=== PATIENT | male | born 1930 | race Caucasian/White ===

== ENCOUNTER 2016-10-10 16:43 | Inpatient (IN) | payer MEDICARE, OTHER ==
[~2016-10-10] VITALS: Ht 175.2 cm; Wt 89.8 kg
--- NOTE | ~2016-10-10 | CON ---
[place], [place] REPORT OF CONSULTATION NAME: MACIEJ BLANK UNIT #: [id number] ROOM: 427 DOCTOR: KAIT HERNANDEZ,EZEKIEL BIRTHDATE: [birth year] DOS: 10/11/2016 ADDENDUM CARDIOLOGY CONSULTATION REASON FOR CONSULTATION: The patient ectopy. This note is an addendum to the notes dictated by Dr. Floyd Fontenot. His exam and assessment reflects my work. PHYSICAL EXAMINATION: HEART: Focused cardiac exam of the heart was irregular, grade 1/6 systolic murmur. LUNGS: Clear to auscultation. EXTREMITIES: Showed 1+ edema. DIAGNOSTIC TESTS: Labs reviewed. IMPRESSION: 1. Frequent supraventricular ectopy, asymptomatic. 2. Altered mental status from hypoglycemia, resolved. 3. Mild lower extremity edema, possibly due to medication related. 4. Diabetes type 2. 5. Chronic kidney disease stage 4. 6. Elevated CK-MB due to mild rhabdo. RECOMMENDATIONS: 1. The patient denies any chest pain. 2. Start low dose beta lori for hypertension and also for supraventricular ectopy. 3. Discontinue Cardizem as well as p.r.n. labetalol. 4. For blood pressure, the patient intake additionally metoprolol as needed. 5. Adjust metoprolol dose based on his blood pressures and heart rates. EZEKIEL CARBALLO MD CM:CONSTR:REPORT OF CONSULTATION 0224 10/14/16 1405 interface
[~2016-10-10 16:43] MED LIST: DILTIAZEM HCL240 M1 PO; LABETALOL HCL100 MG PO; NATURE'S BLEND F1 MG PO; NOVOLOG 70/30 M10 ML SC; ROSUVASTATIN CA40 MG PO; SYNTHROID,LEV112 MCG PO
[2016-10-10 16:53] VITALS: BP 112/69
[2016-10-10 17:05] LABS: BASO # 0.1 10*3/uL (0.0-0.1); BASO % 0.7 % (0.0-1.0); HEMATOCRIT 37.6 % (42.0-52.0); HEMOGLOBIN 11.8 g/dl (14.0-18.0); LYMPH # 1.8 10*3/uL (1.3-4.4); LYMPH % 15.9 % (27.0-41.0); MEAN CELL VOLUME 99.2 fl (80.0-94.0); MEAN CORPUSCULAR HGB 31.1 pg (27.0-31.0); MEAN CORPUSCULAR HGB CONC 31.4 g/dl (33.0-37.0); MEAN PLATELET VOLUME 9.7 fl (9.6-12.3); MONO # 0.7 10*3/uL (0.1-1.0); MONO % 5.6 % (3.0-9.0); NEUT % 77.5 % (47.0-73.0); PLATELET COUNT AUTOMATED 203 10*3/uL (130-400); RED BLOOD COUNT 3.79 10*6/uL (4.50-5.90); RED CELL DISTRI WIDTH 14.6 % (0-14.5); WHITE BLOOD COUNT 11.6 10*3/uL (4.8-10.8)
[2016-10-10 17:13] LABS: PROTHROMBIN TIME 10.9 SECONDS (9.0-12.4)
[2016-10-10 17:25] LABS: ALBUMIN 3.8 gm/dl (3.1-4.5); ALKALINE PHOSPHATASE 92 U/L (45-117); BILIRUBIN, TOTAL 0.4 mg/dl (0.2-1.0); BUN 33 mg/dl (7-24); CARBON DIOXIDE 25 mmol/L (21-32); CHLORIDE 111 mmol/L (98-107); CPK 444 U/L (39-308); EST GLOM FILT AFRICAN AMERICAN 23 ml/min; GLUCOSE 120 mg/dL (65-99); LDH 226 U/L (87-241); MAGNESIUM 2.1 mg/dL (1.5-2.1); POTASSIUM 4.4 mmol/L (3.5-5.1); SGOT/AST 35 IU/L (3-35); SGPT/ALT 55 U/L (12-78); SODIUM 145 mmol/L (136-145); TOTAL PROTEIN 7.8 gm/dL (6.4-8.2)
[2016-10-10 17:28] LABS: CKMB 9.6 ng/ml (0.5-3.6); TROPONIN I < 0.015 ng/ml (<0.5)
[2016-10-10 18:00] VITALS: BP 144/90
[2016-10-10 20:37] VITALS: BP 151/87
[2016-10-10 21:20] VITALS: BP 180/60
[2016-10-11] VITALS: BP 165/56
[2016-10-11 00:52] LABS: TROPONIN I 0.026 ng/ml (<0.5)
[2016-10-11 00:54] LABS: CKMB 10.5 ng/ml (0.5-3.6)
[2016-10-11 05:55] LABS: BASO # 0.1 10*3/uL (0.0-0.1); BASO % 0.6 % (0.0-1.0); HEMATOCRIT 33.5 % (42.0-52.0); HEMOGLOBIN 10.7 g/dl (14.0-18.0); LYMPH # 1.7 10*3/uL (1.3-4.4); LYMPH % 16.6 % (27.0-41.0); MEAN CELL VOLUME 98.2 fl (80.0-94.0); MEAN CORPUSCULAR HGB 31.4 pg (27.0-31.0); MEAN CORPUSCULAR HGB CONC 31.9 g/dl (33.0-37.0); MEAN PLATELET VOLUME 10.4 fl (9.6-12.3); MONO % 9.5 % (3.0-9.0); NEUT # 7.5 10*3/uL (2.3-7.9); PLATELET COUNT AUTOMATED 186 10*3/uL (130-400); RED BLOOD COUNT 3.41 10*6/uL (4.50-5.90); RED CELL DISTRI WIDTH 14.6 % (0-14.5); WHITE BLOOD COUNT 10.2 10*3/uL (4.8-10.8)
[2016-10-11 06:07] LABS: TROPONIN I 0.027 ng/ml (<0.5)
[2016-10-11 06:09] LABS: CKMB 8.2 ng/ml (0.5-3.6)
[2016-10-11 06:28] LABS: HEMOGLOBIN A1c 7.2 % (4.8-5.6)
[2016-10-11 06:32] LABS: ALBUMIN 3.3 gm/dl (3.1-4.5); BILIRUBIN, TOTAL 0.6 mg/dl (0.2-1.0); FREE T4 0.99 ng/dl (0.76-1.46); POTASSIUM 4.7 mmol/L (3.5-5.1); THYROID STIM HORMONE (HS) 0.529 uIU/ml (0.358-4.75); TOTAL PROTEIN 6.4 gm/dL (6.4-8.2)
[2016-10-11 06:33] LABS: INTERNATIONAL NORM RATIO 1.1 (2.0-3.5); PROTHROMBIN TIME 11.2 SECONDS (9.0-12.4)
[2016-10-11 07:03] LABS: FOLIC ACID > 24.00 ng/mL (>5.38)
[2016-10-11 08:00] VITALS: BP 140/78
[2016-10-11 12:00] VITALS: BP 143/52
[2016-10-11 12:06] LABS: TROPONIN I 0.029 ng/ml (<0.5)
[2016-10-11 12:10] LABS: CKMB 8.8 ng/ml (0.5-3.6)
[2016-10-11 16:00] VITALS: BP 139/58
[2016-10-11] MEDS ORDERED: NOVOLOG 70/30 M10 ML SC (19:21)
[2016-10-11 20:00] VITALS: BP 141/58
[2016-10-11 23:45] LABS: BILIRUBIN NEGATIVE (NEGATIVE); BLOOD 2+ (NEGATIVE); CLARITY CLEAR (CLEAR); COLOR YELLOW (YELLOW); GLUCOSE 2+ (NEGATIVE); KETONE NEGATIVE (NEGATIVE); LEUKO ESTERASE 1+ (NEGATIVE); NITRITE NEGATIVE (NEGATIVE); PH 6.5 (5.0-9.0); PROTEIN 2+ (NEGATIVE); SPECIFIC GRAVITY 1.015 (1.005-1.030); UROBILINOGEN 0.2 E.U./dl (0.2-1.0)
[2016-10-12] VITALS: BP 152/55
[2016-10-12 00:35] LABS: BACTERIA TRACE
[2016-10-12 06:01] LABS: BASO # 0.1 10*3/uL (0.0-0.1); BASO % 1.1 % (0.0-1.0); HEMATOCRIT 33.3 % (42.0-52.0); HEMOGLOBIN 10.6 g/dl (14.0-18.0); LYMPH # 2.3 10*3/uL (1.3-4.4); LYMPH % 27.4 % (27.0-41.0); MEAN CELL VOLUME 98.8 fl (80.0-94.0); MEAN CORPUSCULAR HGB 31.5 pg (27.0-31.0); MEAN CORPUSCULAR HGB CONC 31.8 g/dl (33.0-37.0); MEAN PLATELET VOLUME 10.2 fl (9.6-12.3); MONO # 0.9 10*3/uL (0.1-1.0); MONO % 10.3 % (3.0-9.0); PLATELET COUNT AUTOMATED 185 10*3/uL (130-400); RED BLOOD COUNT 3.37 10*6/uL (4.50-5.90); RED CELL DISTRI WIDTH 14.5 % (0-14.5); WHITE BLOOD COUNT 8.3 10*3/uL (4.8-10.8)
[2016-10-12 06:36] LABS: ALBUMIN 3.1 gm/dl (3.1-4.5); PHOSPHOROUS 3.1 mg/dL (2.5-4.9)
[2016-10-12 08:00] VITALS: BP 160/52
[2016-10-12] MEDS ORDERED: NOVOLOG 70/30 M10 ML SC ×2 (10:57)
[2016-10-12 11:57] VITALS: BP 160/60
[2016-10-27] MEDS ORDERED: DOXYCYCLINE100 M3 PO (18:05)
[2016-10-27] MEDS ORDERED: Oscal,Oyster S500 MG PO (18:05)
[2016-10-28] MEDS ORDERED: CARDIZEM CD120 M2 PO (16:32)
[2016-10-28] MEDS ORDERED: CARDIZEM CD240 M1 PO (16:38)
[2016-11-02] MEDS ORDERED: NOVOLOG 70/30 M10 ML SC (13:03)
== END 2016-10-12 14:45 | disposition home or self-care (01) | DRG 637 ==
LOC: ED 16:43 → EDHOLD 19:20 → 4E 19:20
PROVIDERS: Hospitalist; Internal Medicine Nephrology; Nurse Practitioner Family
DX: E11.649 Type 2 diabetes mellitus with hypoglycemia without coma (principal); G93.41 Metabolic encephalopathy; N18.4 Chronic kidney disease, stage 4 (severe); M62.82 Rhabdomyolysis; D72.829 Elevated white blood cell count, unspecified; E03.9 Hypothyroidism, unspecified; I12.9 Hypertensive chronic kidney disease with stage 1 through stage 4 chronic kidney disease, or unspecified chronic kidney disease; E78.5 Hyperlipidemia, unspecified; D53.9 Nutritional anemia, unspecified; K80.20 Calculus of gallbladder without cholecystitis without obstruction; E11.22 Type 2 diabetes mellitus with diabetic chronic kidney disease; I49.1 Atrial premature depolarization; D63.1 Anemia in chronic kidney disease; Z98.49 Cataract extraction status, unspecified eye; Z82.49 Family history of ischemic heart disease and other diseases of the circulatory system; Z83.3 Family history of diabetes mellitus; Z79.4 Long term (current) use of insulin; Z79.899 Other long term (current) drug therapy

== ENCOUNTER 2016-12-31 00:12 | Inpatient (IN) | payer MEDICARE, OTHER ==
[~2016-12-31] VITALS: Ht 172.7 cm; Wt 70.8 kg
[2016-12-31] VITALS (8 sets, daily range): BP systolic 100–151; BP diastolic 28–69
--- NOTE | ~2016-12-31 | PR ---
[place], [place] PROGRESS NOTE NAME: MACIEJ BLANK [facility] #: [id number] UNIT #: [id number] ROOM: 521 DOCTOR: THAD NICOLAS DO BIRTHDATE: [birth year] DOS: 01/03/2017 RENAL PROGRESS NOTE SUBJECTIVE: The patient continues to feel quite well. Notes his appetite is quite good. Denies anorexia, nausea, or vomiting. He is unaware if his output from his colostomy is liquid or formed; however, notes his strength is improved, and he is anxious to be discharged. PHYSICAL EXAMINATION: VITAL SIGNS: His blood pressure is 147/51, pulse is 52, respirations 20, temperature is 97.14 degrees Fahrenheit. GENERAL APPEARANCE: A well-appearing male, examined while sitting in his chair in no apparent distress. LUNGS: Clear to auscultation and percussion. HEART: Regular without an S3 or rub. No murmurs appreciated. ABDOMEN: Soft. Colostomy noted in place with liquid black stool noted. EXTREMITIES: No clubbing, cyanosis. There is no edema noted. LABORATORY DATA: From today, WBCs are 16.0, hemoglobin 8.6, hematocrit 26.7, platelets are 280,000 with 69 segs, noted on automated differential. Sodium is 139, potassium 4.0, chloride 106, CO2 of 25, BUN 55, creatinine 3.94, phosphorus 2.8, magnesium 1.6, calcium is 8.1, albumin of 2.5, corrected calcium is 9.3, proBNP is 5098. Urine is yellow and slightly cloudy, ____ specific gravity 1.015, 1+ protein, 1+ blood, 2+ leukocyte esterase, 21-30 wbcs with 2-4 rbcs. ASSESSMENT AND PLAN: 1. Acute kidney injury on chronic kidney disease. The patient's renal function continues to improve. His electrolytes are now satisfactory. His bicarbonate levels have normalized. His volume status appears to be satisfactory. Note, the elevated BNP is more a reflection of his underlying chronic kidney disease. Urine output is still somewhat sluggish. He continues to have a large amount of output from his colostomy. 2. Acidosis, resolved with Coumadin. For his renal function, he is on bicarbonate drip. 3. Question urinary tract infection. Note that his organism is resistant to the current antibiotic; however, his white count has improved, and clinically, he has improved. It is possible that the improvement is a marketing development representative of concentration of the antibiotic within the urine. RECOMMENDATIONS: I am informed that the patient is being [facility]. This is satisfactory from my perspective. He should have a renal panel checked at the beginning of next week, so his renal function can be reassessed. He should follow up in our office within the next month with Dr. Davis. I would suggest serial chemistries be performed until he follows up within the next 2-4 weeks. He will have this discussed with the nursing staff. [place], [place] PROGRESS NOTE NAME: MACIEJ BLANK UNIT #: [id number] ROOM: 521 DOCTOR: THAD NICOLAS DO BIRTHDATE: [birth year] THAD NICOLAS DO CM:CAM [id number] THAD NICOLAS DO 01/06/17 0118 interface
--- NOTE | ~2016-12-31 | CON ---
[place], [place] REPORT OF CONSULTATION NAME: MACIEJ BLANK UNIT #: [id number] ROOM: 521 DOCTOR: THAD NICOLAS DO BIRTHDATE: [birth year] DATE: 12/31/16 PRIMARY CARE PHYSICIAN: Dr. Richter. ADMITTING PHYSICIAN: Dr. Arizmendi. REASON FOR CONSULTATION: EVANGELINA on CKD. HISTORY OF PRESENT ILLNESS: The patient is an 86-year-old male that presented to the Emergency Department with complaints of weakness and confusion. Once the patient was seen, it was noted that he was a poor historian; therefore, he was unable to provide any information. It was discovered that the patient had been living at his girlfriend's house for the past couple of days, meaning 3-4 days. The patient had become increasingly confused and had a decrease in appetite. Prior to being at his girlfriend's home, the patient was in a rehab facility down in [place] for 4 weeks after the patient had a colectomy performed on 11/06/2016 at [facility]. It is likely that the patient went from [facility] to the nursing facility for roughly 4 weeks and then to his girlfriend's house for roughly 2 weeks before he started getting confused. Currently, the patient is not answering any questions at this time. He is able to be aroused, but it is difficult to obtain any information from him. Therefore, the majority of this H and P was derived from other documentation or from the patient's girlfriend, who was present at bedside. She states that he had been getting more disoriented over the course of the last 3-4 days and had not been eating much at this time. PAST MEDICAL HISTORY: 1. Atrial fibrillation. 2. Chronic kidney disease stage 4. 3. Diabetes mellitus. 4. Hyperlipidemia. 5. Essential hypertension. 6. Hypothyroidism. 7. Bedsores. PAST SURGICAL HISTORY: 1. Colectomy performed on 11/06/2016. 2. Hemorrhoidectomy. 3. Cataract removal. SOCIAL HISTORY: The patient does not smoke, drink or use any illicit drugs. He currently lives in a house with his girlfriend. FAMILY HISTORY: The patient's father was at the age of 75 due to a myocardial infarction. He had a history of diabetes. Mother, the patient's mother became at the age of 85 due to old age. ALLERGIES: None. HOME MEDICATIONS: 1. Cardizem. 2. Folic acid. [place], [place] REPORT OF CONSULTATION NAME: MACIEJ BLANK UNIT #: [id number] ROOM: 521 DOCTOR: THAD NICOLAS DO BIRTHDATE: [birth year] 3. NovoLog /30 mix. 4. Labetalol. 5. Levothyroxine. REVIEW OF SYSTEMS: Due to the patient's current mental state, an accurate review of systems was unable to be obtained. PHYSICAL EXAMINATION: VITAL SIGNS: Temperature 98.6, pulse 56, respiratory rate 16, blood pressure 148/69, pulse ox 100% on room air. GENERAL: The patient is somnolent; however, he is able to be aroused. He does not appear to be in any acute distress at this time. HEENT: Normocephalic and atraumatic. No drainage is noted from the ears or the nares. Eyes: PERRL. No lesions, ulcerations or icterus is noted. ENT: There are no lesions, scars or masses. The nasal mucosa is moist. Nares are patent. Oropharynx is clear and the oral mucosa is moist. Turbinates are pink. Septum is midline. Uvula is not deviated. No pharyngeal exudates or erythema are noted. NECK: Without any lesions, masses or ulcerations. Trachea is midline. Thyroid is not enlarged. CARDIOVASCULAR: The patient's heart rate is bradycardic at this time and irregular. No edema is noted in the bilateral lower extremities. LUNGS: Clear to auscultation bilaterally and diminished at this time. ABDOMEN: Soft, nondistended, positive bowel sounds are heard throughout. The patient does have a colostomy site that is draining liquid stool at this time. EXTREMITIES: There is no erythema, edema, cyanosis or clubbing appreciated. PSYCHOLOGIC: The patient is a poor historian and lethargic. SKIN: Skin is warm and dry. There are some sacral ulcerations located on the patient. LABORATORY DATA: A white blood cell count of 20.7, hemoglobin of 9.8, hematocrit of 30.7, platelet count of 261. INR of 1.0, sodium of 136, potassium 5.1, chloride of 106, carbon dioxide 17, BUN of 71, creatinine of 4.57, glucose of 185, calcium of 8.4, phosphorus of 3.7, magnesium of 2.1. TSH of 0.753, and free T4 of 1.16. ABG: pH of 7.267, pCO2 of 27, pO2 of 73.5, bicarbonate of 11.9. Urinalysis that showed 2+ protein as well as 2+ blood, 3+ leuk esterase, and 1+ urine bacteria. Urine random creatinine of 156. Urine random sodium of 24. Urine random potassium of 48.6 and urine random chloride of 28. IMAGING: A CT of the abdomen and pelvis was performed without contrast, which showed no acute process on CT of abdomen and pelvis, no suspicion of leak. A head CT was performed, which showed a stable foci of encephalomalacia, possibly from prior infarcts, no specific evidence for an evolving major vascular territorial infarct or acute intracranial hemorrhage. Consider MR imaging of the brain as a followup to provide a more sensitive evaluation to exclude small parenchymal process, chronic small vessel ischemic changes are noted. A chest x-ray was performed, which showed left lower lobe patchy atelectasis. ASSESSMENT AND PLAN: 1. Acute kidney injury on chronic kidney disease, likely stage IV. 2. Metabolic acidosis with an anion gap with compensation of that is likely multifactorial. 3. Hyperkalemia, which has resolved. The patient was given Kayexalate. 4. Dehydration. [place], [place] REPORT OF CONSULTATION NAME: MACIEJ BLANK UNIT #: [id number] ROOM: 521 DOCTOR: THAD NICOLAS DO BIRTHDATE: [birth year] PLAN: At this time, the patient will be started on half normal saline with 75 mEq of bicarbonate in it. This will be done to improve the volume status of the patient as he is dehydrated at this time. It is possible that the Kayexalate, which was given may cause some diarrhea. We will get a repeat BMP in the morning to assess his volume status as well as his electrolyte imbalances. If the patient does not show any significant improvement in the next couple of days, a renal ultrasound could be performed. Once his creatinine is back to baseline, a 24-hour urine can be done on the patient to assess his baseline kidney function. THAD NICOLAS DO CM:CONSTR:REPORT OF CONSULTATION 0434 01/02/17 1733 FABIOLA DURHAM.R
--- NOTE | ~2016-12-31 | CON ---
[place], [place] REPORT OF CONSULTATION NAME: MACIEJ BLANK UNIT #: [id number] ROOM: 521 DOCTOR: JOSE THURSTON DO BIRTHDATE: [birth year] DATE: 12/31/16 PRIMARY CARE PHYSICIAN: Dr. Richter. ADMITTING PHYSICIAN: Dr. Arizmendi. REASON FOR CONSULTATION: EVANGELINA on CKD. HISTORY OF PRESENT ILLNESS: The patient is an 86-year-old male that presented to the Emergency Department with complaints of weakness and confusion. Once the patient was seen, it was noted that he was a poor historian; therefore, he was unable to provide any information. It was discovered that the patient had been living at his girlfriend's house for the past couple of days, meaning 3-4 days. The patient had become increasingly confused and had a decrease in appetite. Prior to being at his girlfriend's home, the patient was in a rehab facility down in [place] for 4 weeks after the patient had a colectomy performed on 11/06/2016 at [facility]. It is likely that the patient went from [facility] to the nursing facility for roughly 4 weeks and then to his girlfriend's house for roughly 2 weeks before he started getting confused. Currently, the patient is not answering any questions at this time. He is able to be aroused, but it is difficult to obtain any information from him. Therefore, the majority of this H and P was derived from other documentation or from the patient's girlfriend, who was present at bedside. She states that he had been getting more disoriented over the course of the last 3-4 days and had not been eating much at this time. PAST MEDICAL HISTORY: 1. Atrial fibrillation. 2. Chronic kidney disease stage 4. 3. Diabetes mellitus. 4. Hyperlipidemia. 5. Essential hypertension. 6. Hypothyroidism. 7. Bedsores. PAST SURGICAL HISTORY: 1. Colectomy performed on 11/06/2016. 2. Hemorrhoidectomy. 3. Cataract removal. SOCIAL HISTORY: The patient does not smoke, drink or use any illicit drugs. He currently lives in a house with his girlfriend. FAMILY HISTORY: The patient's father was at the age of 75 due to a myocardial infarction. He had a history of diabetes. Mother, the patient's mother became at the age of 85 due to old age. ALLERGIES: None. HOME MEDICATIONS: 1. Cardizem. 2. Folic acid. [place], [place] REPORT OF CONSULTATION NAME: MACIEJ BLANK UNIT #: [id number] ROOM: 521 DOCTOR: JOSE THURSTON DO BIRTHDATE: [birth year] 3. NovoLog 70/30 mix. 4. Labetalol. 5. Levothyroxine. REVIEW OF SYSTEMS: Due to the patient's current mental state, an accurate review of systems was unable to be obtained. PHYSICAL EXAMINATION: VITAL SIGNS: Temperature 98.6, pulse 56, respiratory rate 16, blood pressure 148/69, pulse ox 100% on room air. GENERAL: The patient is somnolent; however, he is able to be aroused. He does not appear to be in any acute distress at this time. HEENT: Normocephalic and atraumatic. No drainage is noted from the ears or the nares. Eyes: PERRL. No lesions, ulcerations or icterus is noted. ENT: There are no lesions, scars or masses. The nasal mucosa is moist. Nares are patent. Oropharynx is clear and the oral mucosa is moist. Turbinates are pink. Septum is midline. Uvula is not deviated. No pharyngeal exudates or erythema are noted. NECK: Without any lesions, masses or ulcerations. Trachea is midline. Thyroid is not enlarged. CARDIOVASCULAR: The patient's heart rate is bradycardic at this time and irregular. No edema is noted in the bilateral lower extremities. LUNGS: Clear to auscultation bilaterally and diminished at this time. ABDOMEN: Soft, nondistended, positive bowel sounds are heard throughout. The patient does have a colostomy site that is draining liquid stool at this time. EXTREMITIES: There is no erythema, edema, cyanosis or clubbing appreciated. PSYCHOLOGIC: The patient is a poor historian and lethargic. SKIN: Skin is warm and dry. There are some sacral ulcerations located on the patient. LABORATORY DATA: A white blood cell count of 20.7, hemoglobin of 9.8, hematocrit of 30.7, platelet count of 261. INR of 1.0, sodium of 136, potassium 5.1, chloride of 106, carbon dioxide 17, BUN of 71, creatinine of 4.57, glucose of 185, calcium of 8.4, phosphorus of 3.7, magnesium of 2.1. TSH of 0.753, and free T4 of 1.16. ABG: pH of 7.267, pCO2 of 27, pO2 of 73.5, bicarbonate of 11.9. Urinalysis that showed 2+ protein as well as 2+ blood, 3+ leuk esterase, and 1+ urine bacteria. Urine random creatinine of 156. Urine random sodium of 24. Urine random potassium of 48.6 and urine random chloride of 28. IMAGING: A CT of the abdomen and pelvis was performed without contrast, which showed no acute process on CT of abdomen and pelvis, no suspicion of leak. A head CT was performed, which showed a stable foci of encephalomalacia, possibly from prior infarcts, no specific evidence for an evolving major vascular territorial infarct or acute intracranial hemorrhage. Consider MR imaging of the brain as a followup to provide a more sensitive evaluation to exclude small parenchymal process, chronic small vessel ischemic changes are noted. A chest x-ray was performed, which showed left lower lobe patchy atelectasis. ASSESSMENT AND PLAN: 1. Acute kidney injury on chronic kidney disease, likely stage IV. 2. Metabolic acidosis with an anion gap with compensation of that is likely multifactorial. 3. Hyperkalemia, which has resolved. The patient was given Kayexalate. 4. Dehydration. [place], [place] REPORT OF CONSULTATION NAME: MACIEJ BLANK UNIT #: [id number] ROOM: 521 DOCTOR: JOSE THURSTON DO BIRTHDATE: [birth year] PLAN: At this time, the patient will be started on half normal saline with 75 mEq of bicarbonate in it. This will be done to improve the volume status of the patient as he is dehydrated at this time. It is possible that the Kayexalate, which was given may cause some diarrhea. We will get a repeat BMP in the morning to assess his volume status as well as his electrolyte imbalances. If the patient does not show any significant improvement in the next couple of days, a renal ultrasound could be performed. Once his creatinine is back to baseline, a 24-hour urine can be done on the patient to assess his baseline kidney function. JOSE THURSTON DO THAD NICOLAS DO CM:CONSTR:REPORT OF CONSULTATION 1634 01/06/17 1504 FABIOLA DURHAM.R
--- NOTE | ~2016-12-31 | CON ---
[place], [place] REPORT OF CONSULTATION NAME: MACIEJ BLANK UNIT #: [id number] ROOM: [place] [address] DOCTOR: THAD NICOLAS DO BIRTHDATE: [birth year] DOS: 12/31/2016 ADDENDUM The patient was seen in conjunction with Dr. Cabrera, has history and physical examination and ____ reviewed by myself. I agree with the assessment and plan as outlined by Dr. Cabrera in his consultation note. THAD NICOLAS DO CM:CONSTR:REPORT OF CONSULTATION 1346 01/01/17 0253 interface
[~2016-12-31 00:12] MED LIST changes: +CARDIZEM CD120 M2 PO; +CARDIZEM CD240 M1 PO; +DOXYCYCLINE100 M3 PO; +Oscal,Oyster S500 MG PO
[2016-12-31 01:17] LABS: HEMATOCRIT 31.5 % (42.0-52.0); HEMOGLOBIN 10.1 g/dl (14.0-18.0); MEAN CELL VOLUME 99.7 fl (80.0-94.0); MEAN CORPUSCULAR HGB CONC 32.1 g/dl (33.0-37.0); MEAN PLATELET VOLUME 9.7 fl (9.6-12.3); PLATELET COUNT AUTOMATED 272 10*3/uL (130-400); RED BLOOD COUNT 3.16 10*6/uL (4.50-5.90); RED CELL DISTRI WIDTH 14.6 % (0-14.5); WHITE BLOOD COUNT 23.7 10*3/uL (4.8-10.8)
[2016-12-31 01:27] LABS: PROTHROMBIN TIME 10.9 SECONDS (9.0-12.4)
[2016-12-31 01:34] LABS: EOSINOPHIL # 0.2 10*3/uL (0-0.4); EOSINOPHILS 1 % (1-4); LYMPHOCYTE # 4.5 10*3/uL (1.3-4.4); MONOCYTE # 1.4 10*3/uL (0.1-1.0); NEUTROPHIL # 17.5 10*3/uL (2.3-7.9); NEUTROPHILS 74 % (47-73); PLATELET SUFFICIENCY NORMAL (NORMAL); TOTAL CELLS COUNTED 100 #CELLS
[2016-12-31 01:35] LABS: ALBUMIN 3.3 gm/dl (3.1-4.5); BILIRUBIN, TOTAL 0.4 mg/dl (0.2-1.0); POTASSIUM 5.6 mmol/L (3.5-5.1); TOTAL PROTEIN 7.8 gm/dL (6.4-8.2)
[2016-12-31 01:36] LABS: CKMB 2.9 ng/ml (0.5-3.6); TROPONIN I 0.019 ng/ml (<0.045)
[2016-12-31 03:59] LABS: BILIRUBIN NEGATIVE (NEGATIVE); BLOOD 2+ (NEGATIVE); CLARITY CLOUDY (CLEAR); COLOR YELLOW (YELLOW); GLUCOSE NEGATIVE (NEGATIVE); KETONE NEGATIVE (NEGATIVE); LEUKO ESTERASE 3+ (NEGATIVE); NITRITE NEGATIVE (NEGATIVE); PROTEIN 2+ (NEGATIVE); SPECIFIC GRAVITY >= 1.030 (1.005-1.030); UROBILINOGEN 0.2 E.U./dl (0.2-1.0)
[2016-12-31 04:14] LABS: WBC TNTC wbc/hpf (0-5)
[2016-12-31 04:15] LABS: BACTERIA 1+; RBC 21-30 rbc/hpf (0-2); URINE REFLEX COMMENT YES (NO)
[2016-12-31] MEDS ORDERED: TOPROL XL25 MG PO (05:31)
[2016-12-31] MEDS ORDERED: LEVEMIR10 ML SC (05:32)
[2016-12-31] MEDS ORDERED: FLOMAX0.4 MG PO (05:32)
[2016-12-31] MEDS ORDERED: AMARYL4 MG PO (05:32)
[2016-12-31 05:33] LABS: CKMB 2.7 ng/ml (0.5-3.6); TROPONIN I 0.019 ng/ml (<0.045)
[2016-12-31] MEDS ORDERED: ASPIRIN CHEWABL81 MG PO (05:33)
[2016-12-31] MEDS ORDERED: PEPCID20 MG PO (05:33)
[2016-12-31] MEDS ORDERED: TRAZODONE50 MG PO (05:34)
[2016-12-31 05:35] LABS: BASO # 0.1 10*3/uL (0.0-0.1); BASO % 0.4 % (0.0-1.0); HEMATOCRIT 30.7 % (42.0-52.0); HEMOGLOBIN 9.8 g/dl (14.0-18.0); IG # 0.2 10*3/uL (0.0-0.1); LYMPH # 2.9 10*3/uL (1.3-4.4); LYMPH % 13.8 % (27.0-41.0); MEAN CELL VOLUME 99.7 fl (80.0-94.0); MEAN CORPUSCULAR HGB 31.8 pg (27.0-31.0); MEAN CORPUSCULAR HGB CONC 31.9 g/dl (33.0-37.0); MEAN PLATELET VOLUME 9.6 fl (9.6-12.3); MONO # 1.5 10*3/uL (0.1-1.0); NEUT # 16.1 10*3/uL (2.3-7.9); NEUT % 77.9 % (47.0-73.0); PLATELET COUNT AUTOMATED 261 10*3/uL (130-400); RED BLOOD COUNT 3.08 10*6/uL (4.50-5.90); RED CELL DISTRI WIDTH 14.5 % (0-14.5); WHITE BLOOD COUNT 20.7 10*3/uL (4.8-10.8)
[2016-12-31 05:56] LABS: FREE T4 1.16 ng/dl (0.76-1.46); MAGNESIUM 2.1 mg/dL (1.5-2.1); PHOSPHOROUS 3.7 mg/dL (2.5-4.9); POTASSIUM 5.1 mmol/L (3.5-5.1)
[2016-12-31 06:03] LABS: THYROID STIM HORMONE (HS) 0.753 uIU/ml (0.358-4.75)
[2016-12-31 07:07] LABS: FOLIC ACID 19.76 ng/mL (>5.38)
[2016-12-31 09:21] LABS: ABG BASE EXCESS -13.5 mmol/L (-2.0-2.0); ABG CO2 CONTENT 12.8 mmol/L (23-27); ABG HCO3 11.9 mmol/l (22-26); ABG TEMPERATURE 98.4 F (98.0-99.0); ARTERIAL BLOOD GAS PH 7.267 (7.35-7.45); ARTERIAL BLOOD GAS PO2 73.5 mmHg (80-90)
[2016-12-31 12:19] LABS: CKMB 3.6 ng/ml (0.5-3.6); TROPONIN I 0.028 ng/ml (<0.045)
[2016-12-31 18:29] LABS: TROPONIN I 0.03 ng/ml (<0.045)
[2016-12-31 18:35] LABS: CKMB 6.3 ng/ml (0.5-3.6)
[2017-01-01] VITALS (8 sets, daily range): BP systolic 98–149; BP diastolic 32–77
[2017-01-01 05:40] LABS: MAGNESIUM 2.1 mg/dL (1.5-2.1); POTASSIUM 4.7 mmol/L (3.5-5.1)
[2017-01-01 06:07] LABS: BASO # 0.1 10*3/uL (0.0-0.1); BASO % 0.4 % (0.0-1.0); HEMATOCRIT 28.1 % (42.0-52.0); HEMOGLOBIN 8.9 g/dl (14.0-18.0); IG # 0.1 10*3/uL (0.0-0.1); LYMPH # 2.3 10*3/uL (1.3-4.4); LYMPH % 13.9 % (27.0-41.0); MEAN CELL VOLUME 98.9 fl (80.0-94.0); MEAN CORPUSCULAR HGB 31.3 pg (27.0-31.0); MEAN CORPUSCULAR HGB CONC 31.7 g/dl (33.0-37.0); MEAN PLATELET VOLUME 10.1 fl (9.6-12.3); MONO % 6.1 % (3.0-9.0); NEUT # 12.8 10*3/uL (2.3-7.9); NEUT % 79.2 % (47.0-73.0); PLATELET COUNT AUTOMATED 264 10*3/uL (130-400); RED BLOOD COUNT 2.84 10*6/uL (4.50-5.90); RED CELL DISTRI WIDTH 14.7 % (0-14.5); WHITE BLOOD COUNT 16.2 10*3/uL (4.8-10.8)
[2017-01-02 00:07] VITALS: BP 115/44
[2017-01-02 06:39] LABS: BASO # 0.1 10*3/uL (0.0-0.1); BASO % 0.3 % (0.0-1.0); HEMATOCRIT 25.7 % (42.0-52.0); HEMOGLOBIN 8.4 g/dl (14.0-18.0); IG # 0.1 10*3/uL (0.0-0.1); LYMPH # 2.9 10*3/uL (1.3-4.4); LYMPH % 18.8 % (27.0-41.0); MEAN CORPUSCULAR HGB 31.2 pg (27.0-31.0); MEAN CORPUSCULAR HGB CONC 32.7 g/dl (33.0-37.0); MONO % 6.2 % (3.0-9.0); NEUT # 11.5 10*3/uL (2.3-7.9); NEUT % 74.3 % (47.0-73.0); NUCLEATED RED BLOOD CELL 0.2 % (0.0-0.0); PLATELET COUNT AUTOMATED 261 10*3/uL (130-400); RED BLOOD COUNT 2.69 10*6/uL (4.50-5.90); RED CELL DISTRI WIDTH 14.8 % (0-14.5); WHITE BLOOD COUNT 15.5 10*3/uL (4.8-10.8)
[2017-01-02 06:43] LABS: MEAN CELL VOLUME 95.5 fl (80.0-94.0)
[2017-01-02 08:00] VITALS: BP 142/53
[2017-01-02 11:46] VITALS: BP 144/57
[2017-01-02 16:00] VITALS: BP 150/51
[2017-01-02 18:49] LABS: BILIRUBIN NEGATIVE (NEGATIVE); BLOOD 1+ (NEGATIVE); CLARITY SL CLOUDY (CLEAR); COLOR YELLOW (YELLOW); GLUCOSE NEGATIVE (NEGATIVE); KETONE NEGATIVE (NEGATIVE); LEUKO ESTERASE 2+ (NEGATIVE); NITRITE NEGATIVE (NEGATIVE); PROTEIN 1+ (NEGATIVE); SPECIFIC GRAVITY 1.015 (1.005-1.030); UROBILINOGEN 0.2 E.U./dl (0.2-1.0)
[2017-01-02 19:17] LABS: EPITHELIAL CELLS 0-2; WBC 21-30 wbc/hpf (0-5)
[2017-01-02 19:18] LABS: BACTERIA 3+; URINE REFLEX COMMENT YES (NO)
[2017-01-02 19:42] VITALS: BP 110/50
[2017-01-03 00:02] VITALS: BP 112/54
[2017-01-03 06:08] LABS: BASO # 0.1 10*3/uL (0.0-0.1); BASO % 0.3 % (0.0-1.0); HEMATOCRIT 26.7 % (42.0-52.0); HEMOGLOBIN 8.6 g/dl (14.0-18.0); IG # 0.1 10*3/uL (0.0-0.1); LYMPH # 3.8 10*3/uL (1.3-4.4); MEAN CELL VOLUME 98.5 fl (80.0-94.0); MEAN CORPUSCULAR HGB 31.7 pg (27.0-31.0); MEAN CORPUSCULAR HGB CONC 32.2 g/dl (33.0-37.0); MONO % 6.3 % (3.0-9.0); NEUT % 68.9 % (47.0-73.0); PLATELET COUNT AUTOMATED 280 10*3/uL (130-400); RED BLOOD COUNT 2.71 10*6/uL (4.50-5.90); RED CELL DISTRI WIDTH 14.9 % (0-14.5)
[2017-01-03 06:27] LABS: ALBUMIN 2.5 gm/dl (3.1-4.5); MAGNESIUM 1.6 mg/dL (1.5-2.1); PHOSPHOROUS 2.8 mg/dL (2.5-4.9)
[2017-01-03 08:00] VITALS: BP 135/56
[2017-01-03] MEDS ORDERED: NATURE'S BLEND F1 MG PO (10:50)
[2017-01-03 12:00] VITALS: BP 147/61
[2017-01-03 16:00] VITALS: BP 147/61
== END 2017-01-03 16:00 | disposition other institution (70) | DRG 871 ==
LOC: ED 00:12 → 5E 03:59 → EDHOLD 03:59 → 5E 04:39 → ICCU 01-01 00:57 → 5E 01-01 14:03
PROVIDERS: Hospitalist; Internal Medicine; Internal Medicine Hospice and Palliative Medicine; Physician Assistant; Student in an Organized Health Care Education/Training Program
DX: A41.9 Sepsis, unspecified organism (principal); G93.41 Metabolic encephalopathy; N17.0 Acute kidney failure with tubular necrosis; E44.0 Moderate protein-calorie malnutrition; E87.2 Acidosis; N39.0 Urinary tract infection, site not specified; E11.22 Type 2 diabetes mellitus with diabetic chronic kidney disease; E11.65 Type 2 diabetes mellitus with hyperglycemia; I48.2 Chronic atrial fibrillation; I12.9 Hypertensive chronic kidney disease with stage 1 through stage 4 chronic kidney disease, or unspecified chronic kidney disease; E87.5 Hyperkalemia; D64.9 Anemia, unspecified; E86.0 Dehydration; E03.9 Hypothyroidism, unspecified; E78.5 Hyperlipidemia, unspecified; N18.3 Chronic kidney disease, stage 3 (moderate); B95.2 Enterococcus as the cause of diseases classified elsewhere; Z16.21 Resistance to vancomycin; Z98.49 Cataract extraction status, unspecified eye; Z83.3 Family history of diabetes mellitus; Z82.49 Family history of ischemic heart disease and other diseases of the circulatory system; Z79.82 Long term (current) use of aspirin; Z79.4 Long term (current) use of insulin; Z79.899 Other long term (current) drug therapy; Z68.25 Body mass index [BMI] 25.0-25.9, adult

== ENCOUNTER 2017-01-26 23:01 | Emergency (ER) | payer MEDICARE, OTHER ==
[~2017-01-26] VITALS: Ht 175.2 cm; Wt 81.6 kg
[~2017-01-26 23:01] MED LIST changes: +AMARYL4 MG PO; +ASPIRIN CHEWABL81 MG PO; +FLOMAX0.4 MG PO; +LEVEMIR10 ML SC; +PEPCID20 MG PO; +TOPROL XL25 MG PO; +TRAZODONE50 MG PO
[2017-01-26] MEDS ORDERED: VITAMIN C500 M4 PO (23:29)
[2017-01-26] MEDS ORDERED: MEN'S ONE DAIL1 EACH PO (23:31)
== END 2017-01-27 01:42 | disposition other institution (70) ==
LOC: ED 23:01
DX: S01.01XA Laceration without foreign body of scalp, initial encounter (principal); E78.5 Hyperlipidemia, unspecified; E11.9 Type 2 diabetes mellitus without complications; E03.9 Hypothyroidism, unspecified; I48.91 Unspecified atrial fibrillation; I51.7 Cardiomegaly; I12.9 Hypertensive chronic kidney disease with stage 1 through stage 4 chronic kidney disease, or unspecified chronic kidney disease; N18.3 Chronic kidney disease, stage 3 (moderate); Z93.3 Colostomy status; Z79.4 Long term (current) use of insulin; Z79.899 Other long term (current) drug therapy; Z79.82 Long term (current) use of aspirin; W18.39XA Other fall on same level, initial encounter; Y93.89 Activity, other specified; Y92.89 Other specified places as the place of occurrence of the external cause; Y99.8 Other external cause status

== ENCOUNTER 2017-01-27 04:11 | Emergency (ER) | payer MEDICARE, OTHER ==
[~2017-01-27] VITALS: Ht 175.2 cm; Wt 81.6 kg
[~2017-01-27 04:11] MED LIST changes: +MEN'S ONE DAIL1 EACH PO; +VITAMIN C500 M4 PO
== END 2017-01-27 06:23 | disposition other institution (70) ==
LOC: ED 04:11
DX: S01.81XA Laceration without foreign body of other part of head, initial encounter (principal); I12.9 Hypertensive chronic kidney disease with stage 1 through stage 4 chronic kidney disease, or unspecified chronic kidney disease; N18.3 Chronic kidney disease, stage 3 (moderate); E78.5 Hyperlipidemia, unspecified; E03.9 Hypothyroidism, unspecified; I48.91 Unspecified atrial fibrillation; E11.65 Type 2 diabetes mellitus with hyperglycemia; Z79.4 Long term (current) use of insulin; Z79.899 Other long term (current) drug therapy; W18.30XA Fall on same level, unspecified, initial encounter; Y93.89 Activity, other specified; Y92.028 Other place in mobile home as the place of occurrence of the external cause; Y99.9 Unspecified external cause status